=== PATIENT | male | born 1995 | race Two or more races ===

== ENCOUNTER 2019-04-21 19:25 | Emergency (ER) | payer OTHER ==
[~2019-04-21] VITALS: Ht 175.3 cm; Wt 108.9 kg
[2019-04-21] MEDS ORDERED: DIPHTH,PERTUSS(ACELL),TET TOX 0.5 ML DISP.SYRIN. VAX IM ONE (19:45)
--- NOTE | 2019-04-21 19:49 | PHYS DOC ---
Past History Past Medical History: No Pertinent History Past Surgical History: No Surgical History Smoking: Non-smoker Alcohol Use: None Drug Use: None Adult General Chief Complaint Chief Complaint: LACERATION/AVULSION HPI HPI Patient is a 24-year-old male presents with a left forehead wound. This happened shortly prior to arrival. 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 No loss of consciousness. Bleeding was controlled with pressure. Pain is mild. No nausea or vomiting. No visual changes. No hard hat was being worn. He is uncertain as to when his last tetanus vaccine was.[] Review of Systems Review of Systems Constitutional: Denies fever or chills [] Eyes: Denies change in visual acuity, redness, or eye pain [] HENT: Denies nasal congestion or sore throat [] Respiratory: Denies cough or shortness of breath [] Cardiovascular: No chest pain or palpitations[] GI: Denies abdominal pain, nausea, vomiting, bloody stools or diarrhea [] : Denies dysuria or hematuria [] Musculoskeletal: Denies back pain or joint pain [] Integument: Denies rash or skin lesions, see history of present illness [] Neurologic: Denies headache, focal weakness or sensory changes [] Endocrine: Denies polyuria or polydipsia [] All other systems were reviewed and found to be within normal limits, except as documented in this note. Physical Exam Physical Exam Constitutional: Well developed, well nourished, no acute distress, non-toxic appearance. [] HENT: Normocephalic, irregular laceration left for head. No foreign body identified., bilateral external ears normal, TMs are clear without any blood or fluid. Oropharynx moist, no oral exudates, nose normal. [] Eyes: PERRLA, EOMI, conjunctiva normal, no discharge. [] Neck: Normal range of motion, no tenderness, supple, no stridor. [] Cardiovascular:Heart rate regular rhythm, no murmur [] Lungs & Thorax: Bilateral breath sounds clear to auscultation [] Abdomen: Bowel sounds normal, soft, no tenderness, no masses, no pulsatile masses. [] Skin: Warm, dry, no erythema, no rash. [] Back: No tenderness, no CVA tenderness. [] Extremities: No tenderness, no cyanosis, no clubbing, ROM intact, no edema. [] Neurologic: Alert and oriented X 3, normal motor function, normal sensory function, no focal deficits noted. [] Psychologic: Affect normal, judgement normal, mood normal. [] EKG EKG [] Radiology/Procedures Radiology/Procedures [] Course & Med Decision Making Course & Med Decision Making Pertinent Labs and Imaging studies reviewed. (See chart for details) ED course: Patient arrived, was placed in bed, and tolerated exam well. The laceration was repaired with skin glue. His tetanus status was updated. Findings and plan were discussed with patient and family who voiced understanding. All questions were answered. He was discharged in improved condition. Medical decision making: There is no evidence of a skull fracture. No evidence of significant closed head injury. No evidence of retained foreign body.[] Dragon Disclaimer Dragon Disclaimer This electronic medical record was generated, in whole or in part, using a voice recognition dictation system. Departure Departure: Impression: Primary Impression: Forehead laceration Disposition: 01 HOME, SELF-CARE Condition: IMPROVED Patient Instructions: Facial Laceration, Tissue Adhesive Wound Care Additional Instructions: Keep the wound clean and dry. Follow-up with your regular doctor in 2 days for a wound check. If you do not have a regular doctor list of local clinics will be provided for you. Return to the ER if worsening pain, increasing redness, purulent drainage, fever of more than 101�, or any other concerns. Laceration Repair Lac Repair Indication: Laceration repair[] Procedure: The patient was placed in the appropriate position the area was then cleansed. The laceration was closed with skin glue. The wound area was then dressed with sterile dressing. Total repaired wound length: 1.5 cm's. Other Items: None The patient tolerated the procedure well. Hemostasis was achieved.]. Complications: None. Problem Qualifiers Primary Impression: Forehead laceration Encounter type: initial encounter Qualified Codes: S01.81XA - Laceration without foreign body of other part of head, initial encounter CHALORAFFY RANKIN Apr 21, 2019 19:49
[2019-04-21 19:55] VITALS: BP 132/64
== END 2019-04-21 20:02 | disposition home or self-care (01) ==
LOC: ER 19:25
DX: S01.81XA Laceration without foreign body of other part of head, initial encounter (principal); W22.8XXA Striking against or struck by other objects, initial encounter; Y93.89 Activity, other specified; Y92.89 Other specified places as the place of occurrence of the external cause; Y99.0 Civilian activity done for income or pay
CPT/HCPCS: 12011; 90471; 90715; 99283-25

== ENCOUNTER 2020-11-28 02:45 | Emergency (ER) | payer OTHER ==
[~2020-11-28] VITALS: Ht 175.3 cm; Wt 129.4 kg
[2020-11-28 03:02] VITALS: BP 152/94
[2020-11-28] MEDS ORDERED: CIPR7.5D LEFT EAR (03:02)
[2020-11-28] MEDS ORDERED: AMOX500T PO (03:02)
--- NOTE | 2020-11-28 03:02 | PHYS DOC ---
Past History Past Medical History: No Pertinent History Past Surgical History: No Surgical History Smoking: Non-smoker Alcohol Use: None Drug Use: None General Adult EDM: Chief Complaint: EARACHE/EAR PAIN HPI: HPI: 25M with no reported significant PMH, p/w 1 day of left sided otalgia. Patient was attempting to remove excess cerumen from both of his ears over the last couple days. Over the last day, he began to develop left ear pain, worsened with manipulation of the auricle. No fever, chills, N/V, neck pain or stiffness. No URI Sx or sore throat. No significant indoor/outdoor water submersion (e[place]g. in [place]). Review of Systems: Review of Systems: Gen: No fever, chills. Eyes: No blurred vision, diplopia. ENT: No nasal congestion, sore throat. Reports left otalgia. CV: No CP, palpitations. Resp. No SOB, cough. GI: No abd pain, N/V. Neuro: No RICHTER, dizziness, weakness. Remainder of systems reviewed and negative unless otherwise specified. Allergies: Allergies: Allergies Coded Allergies Type Severity Reaction Last Updated Verified No Known Drug Allergies 04/21/19 No Physical Exam: PE: Gen: NAD. Well nourished. Head: NC/AT. Eyes: No scleral icterus. No conjunctival injection. PERRL. ENT: MMM. Posterior OP clear. Erythema and mild edema of the left EAC, with mildly erythematous left TM. Left ear pain with manipulation of the left auricle. No swelling or red of the left auricle itself. BL auricles appear symmetric. No mastoid percussion TTP or overlying acute skin changes. TMs intact without perforation. Right TM clear. Neck: Supple. NT. Lymph: No anterior cervical adenopathy. CV: RRR. Peripheral pulses intact. Resp: CTAB. MSK: No peripheral cyanosis. Neuro: Awake and alert. Skin. Warm. Dry. Psych: Appropriate mood & affect. EKG: EKG: [] Radiology/Procedures: Radiology/Procedures: [] Heart Score: C/O Chest Pain: N/A Risk Factors: Risk Factors: DM, Current or recent (<one month) smoker, HTN, HLP, family history of CAD, obesity. Risk Scores: Score 0 - 3: 2.5% MACE over next 6 weeks - Discharge Home Score 4 - 6: 20.3% MACE over next 6 weeks - Admit for Clinical Observation Score 7 - 10: 72.7% MACE over next 6 weeks - Early Invasive Strategies Course & Med Decision Making: Course & Med Decision Making Pertinent Labs and Imaging studies reviewed. (See chart for details) In summary, 25M p/w left otalgia x1 day, after attempting to remove cerumen over last couple days. Mild erythema and mild swelling of left EAC, with mild erythema of left TM. Right ear/TM unremarkable. No mastoid percussion TTP; do not suspect mastoiditis. Likely mechanical irritation of EAC, though appearance is similar to mild OE/OM. Will Tx empirically with PO amox and otic ciprodex. Outpatient F/U. Return precautions given. Amber Disclaimer: Amber Disclaimer: This electronic medical record was generated, in whole or in part, using a voice recognition dictation system. Departure Departure: Impression: Primary Impression: Otitis externa Disposition: 01 DC HOME SELF CARE/HOMELESS Condition: STABLE Referrals: LUPE GOLD MD (PCP) Patient Instructions: Otitis Externa, [id number] Scripts Amoxicillin (AMOXICILLIN) 500 Mg Tablet 1 TAB PO BID for otitis media, #14 TAB Prov: LE,KATHY H DO 11/28/20 Ciprofloxacin Hcl/Dexameth (CIPRODEX OTIC SUSPENSION) 7.5 Ml Drops.susp 4 DROP LEFT EAR BID for otitis externa, #1 BOTTLE Prov: LE,KATHY H DO 11/28/20 LE,KATHY H DO Nov 28, 2020 03:02
== END 2020-11-28 03:10 | disposition home or self-care (01) ==
LOC: ER 02:45
DX: H60.92 Unspecified otitis externa, left ear (principal)
CPT/HCPCS: 99283